=== PATIENT | female | born 1945 | race Two or more races ===

== ENCOUNTER 2019-06-11 20:07 | Inpatient (IN) | payer SELFPAY ==
[~2019-06-11] VITALS: Ht 152.4 cm; Wt 48.5 kg
[2019-06-11] MEDS ORDERED: IPRATROPIUM BROMIDE (0.02%) 0.5MG/2.5ML NEB HHN STA (20:18)
[2019-06-11] MEDS ORDERED: ALBUTEROL (0.083%) 2.5MG/3ML NEB HHN STA (20:18)
[2019-06-11] MEDS ORDERED: METHYLPREDNISOLONE SOD SUCC 125 MG/2 ML VIAL IV STA (20:18)
[2019-06-11] MEDS ORDERED: DILTIAZEM HCL 5MG/ML 5ML VIAL IV ONE ×2 (20:30→23:45)
[2019-06-11 20:44] LABS: HEMATOCRIT. 43.4 % (36.0-48.0); HEMOGLOBIN. 14.8 g/dL (12.0-16.0); MEAN CORPUSCULAR HEMOGLOBIN 29.8 pg (28.0-32.0); MEAN CORPUSCULAR VOLUME 87.6 fL (81.0-99.0); PLATELET 481 x1000/uL (130-400); RED BLOOD CELL COUNT 4.96 mill/uL (4.2-5.4)
[2019-06-11 20:45] LABS: CHLORIDE 102 mEq/L (98-107)
[2019-06-11 21:09] LABS: PLATELET ESTIMATE INCREASED
[2019-06-11] MEDS ORDERED: LEVOFLOXACIN 750MG PREMIX 150 ML IV ONE (21:30)
[2019-06-11] MEDS ORDERED: SODIUM CHLORIDE 0.9% 1000ML BAG (SEPSIS BOLUS) IV ONE (21:30)
[2019-06-11] MEDS ORDERED: ACETAMINOPHEN 325MG TABLET PO PRN (22:30)
[2019-06-11] MEDS ORDERED: LORAZEPAM 0.5MG TABLET PO PRN (22:30)
[2019-06-11] MEDS ORDERED: NA PHOS,M-B/NA PHOS,DI-BA ENEMA 118ML PR PRN (22:30)
[2019-06-11] MEDS ORDERED: DOCUSATE SODIUM 100MG CAPSULE PO PRN (22:30)
[2019-06-11] MEDS ORDERED: CLONIDINE 0.1MG TABLET PO PRN (22:30)
[2019-06-11] MEDS ORDERED: ZOLPIDEM TARTRATE 5MG TABLET PO PRN (22:30)
[2019-06-11] MEDS ORDERED: NITROGLYCERIN 0.4MG TABLET SL SL PRN (22:30)
[2019-06-11] MEDS ORDERED: MAGNESIUM/ALUMINUM HYDROXIDE/SIMETHICONE 30ML UDC PO PRN (22:30)
[2019-06-11] MEDS ORDERED: DIPHENHYDRAMINE 50MG/ML VIAL IV PRN (22:30)
[2019-06-11] MEDS ORDERED: IPRATROPIUM/ALBUTEROL 0.5-3(2.5)MG/3ML NEB NEB PRN (22:30)
[2019-06-11] MEDS ORDERED: ONDANSETRON HCL 4MG/2ML INJ IV PRN (22:30)
[2019-06-11] MEDS ORDERED: KETOROLAC 15MG/ML VIAL IV PRN (22:41)
[2019-06-11 22:46] LABS: BG BASE EXCESS -1.4 mmol/L (-2.0-2.0); BG BILEVEL POS AIRWAY PRESSURE 15/5; BG CARBOXYHEMOGLOBIN 0.3 % (0.5-1.5); BG DEOXYHEMOGLOBIN 0.3 % (0.0-5.0); BG FRACTION INSPIRED OXYGEN 100; BG HCO3 ACT 24.3 mmol/L (22.0-26.0); BG METHEMOGLOBIN 0.3 % (0.0-1.5); BG OXYGEN SATURATION 99.7 % (92.0-98.5); BG OXYHEMOGLOBIN 99.1 % (94.0-97.0); BG PCO2 44.6 mmHg (35.0-45.0); BG PH 7.355 (7.350-7.450); BG PO2 416.7 mmHg (75.0-100.0); BG SAMPLE SITE RIGHT RADIAL; BG TOTAL HEMOGLOBIN 14.7 g/dL (12.0-18.0); BG VENT MODE MASK - BIPAP; BG VENT RATE 14 set
[2019-06-11] MEDS ORDERED: DILTIAZEM HCL 125 MG in DEXT 5% WATER 100 ML IV ONE (23:45)
[2019-06-12] VITALS (9 sets, daily range): BP systolic 91–144; BP diastolic 52–85
[2019-06-12] LABS: CLARITY URINE CLOUDY (CLEAR); COLOR URINE ORANGE (YELLOW); KETONES URINE NEGATIVE (NEGATIVE); LEUKOCYTE ESTERASE URINE 2+ (NEGATIVE); NITRITE URINE POSITIVE (NEGATIVE); OCCULT BLOOD URINE TRACE (NEGATIVE); PROTEIN URINE 2+ (NEGATIVE); SPECIFIC GRAVITY URINE 1.026 (1.005-1.030); UROBILINOGEN URINE 0.2 E.U./dL (0.2-1.0)
[2019-06-12] MEDS ORDERED: DILTIAZEM HCL 125 MG in DEXT 5% WATER 100 ML IV ONE (02:20)
[2019-06-12] MEDS: IPRATROPIUM/ALBUTEROL 0.5-3(2.5)MG/3ML NEB HHN SCH ×7 (02:35→23:59)
[2019-06-12] MEDS: DILTIAZEM HCL 60MG TABLET PO SCH ×3 (06:00→18:00)
[2019-06-12] MEDS: METHYLPREDNISOLONE SOD SUCC 125 MG/2 ML VIAL IV SCH ×3 (06:14→21:32)
[2019-06-12] MEDS: FAMOTIDINE 20MG TABLET PO SCH (09:34)
[2019-06-12] MEDS: ASPIRIN 81MG EC TABLET PO SCH (09:34)
[2019-06-12] MEDS: ENOXAPARIN 40MG/0.4ML SYR SUBCUT SCH (09:35)
[2019-06-12] MEDS: GUAIFENESIN/DM 600MG/30MG ER TAB 12HR PO SCH ×2 (09:35→21:32)
[2019-06-12 09:44] LABS: CREATINE KINASE MB FRACTION 8.9 ng/mL (0.5-3.6)
[2019-06-12] MEDS ORDERED: PRED5TAB48 PO (11:50)
[2019-06-12] MEDS ORDERED: DIGO0.12 PO (11:50)
[2019-06-12] MEDS ORDERED: ATOR40TA70 PO (11:50)
[2019-06-12] MEDS ORDERED: XAR15 GT (11:50)
[2019-06-12] MEDS ORDERED: FLUO1POW12 MC (11:50)
[2019-06-12] MEDS ORDERED: DILT240C91 PO (11:50)
[2019-06-12] MEDS ORDERED: FLUO20TA29 MT (11:55)
[2019-06-12 17:08] LABS: CREATINE KINASE MB FRACTION 8.3 ng/mL (0.5-3.6)
[2019-06-12] MEDS ORDERED: DEXTROSE 50% WATER 50ML SYRINGE IV PRN (19:30)
[2019-06-12] MEDS: BLOOD SUGAR DIAGNOSTIC STRIP TEST SCH (21:21)
[2019-06-12] MEDS: INSULIN LISPRO 100 UNITS/ML SUBCUT SCH (21:31)
[2019-06-12] MEDS ORDERED: LEVOFLOXACIN 250MG PREMIX 50 ML IV SCH (22:00)
[2019-06-12] MEDS: LEVOFLOXACIN 250MG PREMIX 50 ML IV SCH (23:58)
[2019-06-13] VITALS (13 sets, daily range): BP systolic 95–142; BP diastolic 50–94
[2019-06-13] MEDS: IPRATROPIUM/ALBUTEROL 0.5-3(2.5)MG/3ML NEB HHN SCH (04:13)
[2019-06-13] MEDS: DILTIAZEM HCL 60MG TABLET PO SCH ×2 (05:02)
[2019-06-13] MEDS: DILTIAZEM HCL 30MG TABLET PO SCH ×4 (05:14→23:24)
[2019-06-13] MEDS: METHYLPREDNISOLONE SOD SUCC 125 MG/2 ML VIAL IV SCH ×3 (05:56→21:00)
[2019-06-13] MEDS: BLOOD SUGAR DIAGNOSTIC STRIP TEST SCH ×4 (06:01→20:38)
[2019-06-13] MEDS: INSULIN LISPRO 100 UNITS/ML SUBCUT SCH ×4 (07:20→20:44)
[2019-06-13] MEDS ORDERED: DIGOXIN 500MCG/2ML AMP IV NR ×2 (07:45→12:00)
[2019-06-13] MEDS: ASPIRIN 81MG EC TABLET PO SCH (08:02)
[2019-06-13] MEDS: FAMOTIDINE 20MG TABLET PO SCH (08:02)
[2019-06-13] MEDS: GUAIFENESIN/DM 600MG/30MG ER TAB 12HR PO SCH ×2 (08:02→20:44)
[2019-06-13] MEDS: ENOXAPARIN 40MG/0.4ML SYR SUBCUT SCH (08:02)
[2019-06-13] MEDS ORDERED: DIGOXIN 500MCG/2ML AMP IV ONE (09:30)
[2019-06-13] MEDS: GUAIFENESIN 200MG/10ML SUGAR FREE UDC PO PRN (14:24)
[2019-06-13] MEDS: IPRATROPIUM BROMIDE (0.02%) 0.5MG/2.5ML NEB HHN SCH ×2 (16:30→20:17)
[2019-06-13] MEDS: LEVOFLOXACIN 250MG PREMIX 50 ML IV SCH (23:24)
[2019-06-14] VITALS (16 sets, daily range): BP systolic 98–142; BP diastolic 49–70
[2019-06-14] MEDS: IPRATROPIUM BROMIDE (0.02%) 0.5MG/2.5ML NEB HHN SCH ×5 (04:04→21:35)
[2019-06-14] MEDS: METHYLPREDNISOLONE SOD SUCC 125 MG/2 ML VIAL IV SCH ×3 (05:59→20:30)
[2019-06-14] MEDS: DILTIAZEM HCL 30MG TABLET PO SCH (05:59)
[2019-06-14] MEDS: BLOOD SUGAR DIAGNOSTIC STRIP TEST SCH ×4 (06:03→20:31)
[2019-06-14] MEDS: GUAIFENESIN 200MG/10ML SUGAR FREE UDC PO PRN (06:06)
[2019-06-14 06:46] LABS: BASOPHILS % 0.1 % (0.0-2.0); EOSINOPHILS % 0.1 % (0.0-5.0); HEMATOCRIT. 36.1 % (36.0-48.0); HEMOGLOBIN. 12.4 g/dL (12.0-16.0); LYMPHOCYTES % 7.3 % (20.0-50.0); MEAN CORPUSCULAR HEMOGLOBIN 29.8 pg (28.0-32.0); MEAN CORPUSCULAR VOLUME 86.9 fL (81.0-99.0); MEAN PLATELET VOLUME 7.4 fl (7.4-10.4); MONOCYTES % 5.7 % (2.0-8.0); NEUTROPHILS % 86.8 % (40.0-76.0); PLATELET 362 x1000/uL (130-400); RED BLOOD CELL COUNT 4.15 mill/uL (4.2-5.4)
[2019-06-14 07:06] LABS: CHLORIDE 105 mEq/L (98-107)
[2019-06-14] MEDS: INSULIN LISPRO 100 UNITS/ML SUBCUT SCH ×4 (07:20→20:47)
[2019-06-14] MEDS: ASPIRIN 81MG EC TABLET PO SCH (08:57)
[2019-06-14] MEDS: FAMOTIDINE 20MG TABLET PO SCH (08:57)
[2019-06-14] MEDS: GUAIFENESIN/DM 600MG/30MG ER TAB 12HR PO SCH ×2 (08:57→20:31)
[2019-06-14] MEDS: ENOXAPARIN 40MG/0.4ML SYR SUBCUT SCH (08:58)
[2019-06-14] MEDS: DILTIAZEM HCL 60MG TABLET PO SCH ×3 (09:14→20:31)
[2019-06-14] MEDS: DIGOXIN 125MCG TABLET PO SCH (17:10)
[2019-06-15] VITALS (12 sets, daily range): BP systolic 92–135; BP diastolic 46–77
[2019-06-15] MEDS: LEVOFLOXACIN 250MG PREMIX 50 ML IV SCH ×2 (00:13→23:57)
[2019-06-15] MEDS: IPRATROPIUM BROMIDE (0.02%) 0.5MG/2.5ML NEB HHN SCH ×5 (01:52→21:50)
[2019-06-15] MEDS: METHYLPREDNISOLONE SOD SUCC 125 MG/2 ML VIAL IV SCH ×3 (06:16→21:31)
[2019-06-15] MEDS: DILTIAZEM HCL 60MG TABLET PO SCH ×3 (06:17→21:32)
[2019-06-15] MEDS: BLOOD SUGAR DIAGNOSTIC STRIP TEST SCH ×4 (06:19→21:32)
[2019-06-15 07:08] LABS: CHLORIDE 102 mEq/L (98-107)
[2019-06-15 07:12] LABS: BASOPHILS % 0.6 % (0.0-2.0); EOSINOPHILS % 0.1 % (0.0-5.0); HEMATOCRIT. 39.5 % (36.0-48.0); HEMOGLOBIN. 13.9 g/dL (12.0-16.0); LYMPHOCYTES % 8.4 % (20.0-50.0); MEAN CORPUSCULAR HEMOGLOBIN 30.4 pg (28.0-32.0); MEAN CORPUSCULAR VOLUME 86.6 fL (81.0-99.0); MEAN PLATELET VOLUME 7.6 fl (7.4-10.4); MONOCYTES % 6.4 % (2.0-8.0); NEUTROPHILS % 84.5 % (40.0-76.0); PLATELET 377 x1000/uL (130-400); RED BLOOD CELL COUNT 4.56 mill/uL (4.2-5.4); RED CELL DISTRIBUTION WIDTH 14.1 % (11.6-14.6)
[2019-06-15] MEDS: INSULIN LISPRO 100 UNITS/ML SUBCUT SCH ×4 (07:20→21:47)
[2019-06-15] MEDS: GUAIFENESIN/DM 600MG/30MG ER TAB 12HR PO SCH ×2 (09:09→21:31)
[2019-06-15] MEDS: ENOXAPARIN 40MG/0.4ML SYR SUBCUT SCH (09:09)
[2019-06-15] MEDS: ASPIRIN 81MG EC TABLET PO SCH (09:09)
[2019-06-15] MEDS: FAMOTIDINE 20MG TABLET PO SCH (09:09)
[2019-06-15] MEDS: DIGOXIN 125MCG TABLET PO SCH (17:05)
[2019-06-16] VITALS (9 sets, daily range): BP systolic 99–129; BP diastolic 41–84
[2019-06-16] MEDS: IPRATROPIUM BROMIDE (0.02%) 0.5MG/2.5ML NEB HHN SCH ×4 (01:44→12:25)
[2019-06-16] MEDS: METHYLPREDNISOLONE SOD SUCC 125 MG/2 ML VIAL IV SCH ×2 (06:04→13:27)
[2019-06-16] MEDS: BLOOD SUGAR DIAGNOSTIC STRIP TEST SCH ×2 (06:04→11:58)
[2019-06-16] MEDS: DILTIAZEM HCL 60MG TABLET PO SCH (06:05)
[2019-06-16] MEDS: INSULIN LISPRO 100 UNITS/ML SUBCUT SCH ×2 (06:05→13:28)
[2019-06-16 06:50] LABS: BASOPHILS % 0.5 % (0.0-2.0); EOSINOPHILS % 0.1 % (0.0-5.0); HEMATOCRIT. 39.5 % (36.0-48.0); HEMOGLOBIN. 13.6 g/dL (12.0-16.0); MEAN CORPUSCULAR VOLUME 86.9 fL (81.0-99.0); MEAN PLATELET VOLUME 7.7 fl (7.4-10.4); MONOCYTES % 3.8 % (2.0-8.0); NEUTROPHILS % 87.6 % (40.0-76.0); PLATELET 348 x1000/uL (130-400); RED BLOOD CELL COUNT 4.55 mill/uL (4.2-5.4)
[2019-06-16 07:19] LABS: CHLORIDE 102 mEq/L (98-107)
[2019-06-16] MEDS: GUAIFENESIN/DM 600MG/30MG ER TAB 12HR PO SCH (08:48)
[2019-06-16] MEDS: ASPIRIN 81MG EC TABLET PO SCH (08:48)
[2019-06-16] MEDS: FAMOTIDINE 20MG TABLET PO SCH (08:48)
[2019-06-16] MEDS: ENOXAPARIN 40MG/0.4ML SYR SUBCUT SCH (08:49)
[2019-06-16 10:43] LABS: BG BASE EXCESS 6.9 mmol/L (-2.0-2.0); BG CARBOXYHEMOGLOBIN 0.1 % (0.5-1.5); BG DEOXYHEMOGLOBIN 8.3 % (0.0-5.0); BG FRACTION INSPIRED OXYGEN 21; BG HCO3 ACT 31.4 mmol/L (22.0-26.0); BG METHEMOGLOBIN 0.3 % (0.0-1.5); BG OXYGEN SATURATION 91.7 % (92.0-98.5); BG OXYHEMOGLOBIN 91.3 % (94.0-97.0); BG PCO2 44.3 mmHg (35.0-45.0); BG PH 7.469 (7.350-7.450); BG PO2 58.2 mmHg (75.0-100.0); BG SAMPLE SITE LEFT BRACHIAL; BG TOTAL HEMOGLOBIN 13.9 g/dL (12.0-18.0); BG VENT MODE ROOM AIR
[2019-06-16] MEDS ORDERED: DILTIAZEM HCL 30MG TABLET PO SCH (12:00)
[2019-06-16] MEDS ORDERED: LEVOFLOXACIN 250MG TABLET PO SCH (23:00)
== END 2019-06-16 14:28 | disposition home or self-care (01) | DRG 720 ==
LOC: ER 20:07 → 3WST 22:24 → EDBD 22:24 → CANRESERV 22:36 → ENRESERV 22:36 → EDBEDREQSVC 22:51 → ENRESERV 06-12 02:20
PROVIDERS: ADMIT Internal Medicine; ATTEND Internal Medicine
DX: A41.9 Sepsis, unspecified organism (principal); J96.00 Acute respiratory failure, unspecified whether with hypoxia or hypercapnia; I50.43 Acute on chronic combined systolic (congestive) and diastolic (congestive) heart failure; E44.0 Moderate protein-calorie malnutrition; J90 Pleural effusion, not elsewhere classified; E11.65 Type 2 diabetes mellitus with hyperglycemia; I48.91 Unspecified atrial fibrillation; I47.1 Supraventricular tachycardia; I48.0 Paroxysmal atrial fibrillation; I48.92 Unspecified atrial flutter; J44.1 Chronic obstructive pulmonary disease with (acute) exacerbation; E05.90 Thyrotoxicosis, unspecified without thyrotoxic crisis or storm; N39.0 Urinary tract infection, site not specified; R79.89 Other specified abnormal findings of blood chemistry; E11.9 Type 2 diabetes mellitus without complications; J96.20 Acute and chronic respiratory failure, unspecified whether with hypoxia or hypercapnia; Z79.4 Long term (current) use of insulin; Z68.20 Body mass index [BMI] 20.0-20.9, adult; F17.210 Nicotine dependence, cigarettes, uncomplicated; Z79.01 Long term (current) use of anticoagulants; Z79.82 Long term (current) use of aspirin
CPT/HCPCS: 36415; 36600; 71045; 80048; 80061; 81003; 82375; 82550; 82553; 82805; 82962; 83036; 83605; 83735; 83880; 84145; 84443; 84484; 93005; 93306; 94640; 94644; 94660; 96365; 96366; 96375; 97116; 97162; 99291; J1160; J1650; J1815; J1956; J2930; J3490; J7060; J7611; J7620

== ENCOUNTER 2019-08-08 10:14 | Inpatient (IN) | payer SELFPAY ==
[~2019-08-08] VITALS: Ht 149.9 cm; Wt 54.9 kg
[~2019-08-08 10:14] MED LIST: ATOR40TA70 PO; DIGO0.12 PO; DILT240C91 PO; FLUO20TA29 MT; XAR15 GT
[2019-08-08] MEDS ORDERED: ASPIRIN 81MG TABLET PO ONE (10:30)
[2019-08-08] MEDS ORDERED: NITROGLYCERIN 0.4MG TABLET SL SL PRN (10:30)
[2019-08-08 11:10] LABS: BG BASE EXCESS -2.2 mmol/L (-2.0-2.0); BG BILEVEL POS AIRWAY PRESSURE 15/5; BG CARBOXYHEMOGLOBIN 0.8 % (0.5-1.5); BG DEOXYHEMOGLOBIN 0.2 % (0.0-5.0); BG FRACTION INSPIRED OXYGEN 100; BG HCO3 ACT 23.4 mmol/L (22.0-26.0); BG METHEMOGLOBIN 0.4 % (0.0-1.5); BG OXYGEN SATURATION 99.8 % (92.0-98.5); BG OXYHEMOGLOBIN 98.6 % (94.0-97.0); BG PCO2 43.1 mmHg (35.0-45.0); BG PH 7.352 (7.350-7.450); BG PO2 474.6 mmHg (75.0-100.0); BG SAMPLE SITE RIGHT RADIAL; BG VENT MODE MASK - BIPAP; BG VENT RATE 24 set
[2019-08-08 11:25] LABS: BASOPHILS % 0.4 % (0.0-2.0); EOSINOPHILS % 11.7 % (0.0-5.0); HEMATOCRIT. 41.8 % (36.0-48.0); HEMOGLOBIN. 14.1 g/dL (12.0-16.0); LYMPHOCYTES % 11.8 % (20.0-50.0); MEAN CORPUSCULAR HEMOGLOBIN 29.9 pg (28.0-32.0); MONOCYTES % 5.5 % (2.0-8.0); NEUTROPHILS % 70.6 % (40.0-76.0); PLATELET 373 x1000/uL (130-400); RED CELL DISTRIBUTION WIDTH 14.9 % (11.6-14.6)
[2019-08-08] MEDS ORDERED: SODIUM CHLORIDE 0.9% 1,000 ML IV ONE (11:30)
[2019-08-08 11:34] LABS: CHLORIDE 108 mEq/L (98-107)
[2019-08-08] MEDS ORDERED: DILTIAZEM HCL 5MG/ML 5ML VIAL IV ONE (12:00)
[2019-08-08] MEDS ORDERED: DILTIAZEM HCL 180MG CAPSULE CD 24HR PO ONE (12:45)
[2019-08-08] MEDS ORDERED: ENOXAPARIN 80MG/0.8ML SYR SUBCUT ONE (12:45)
[2019-08-08] MEDS ORDERED: METHYLPREDNISOLONE SOD SUCC 125 MG/2 ML VIAL IV ONE (12:45)
[2019-08-08] MEDS ORDERED: ACETAMINOPHEN 325MG TABLET PO PRN (13:00)
[2019-08-08] MEDS ORDERED: DEXTROSE 50% WATER 50ML SYRINGE IV PRN (13:00)
[2019-08-08] MEDS ORDERED: ONDANSETRON HCL 4MG/2ML INJ IV PRN (13:00)
[2019-08-08 15:42] LABS: HEPATITIS B SURFACE ANTIGEN NEGATIVE
[2019-08-08 16:00] VITALS: BP_SYST 114; BP_SYST 117; BP_DIAS 64; BP_DIAS 72
[2019-08-08 16:11] LABS: HEPATITIS A AB IGM NEGATIVE (NEGATIVE)
[2019-08-08] MEDS ORDERED: RIVAROXABAN 10 MG TABLET PO SCH (17:00)
[2019-08-08] MEDS ORDERED: IPRATROPIUM BROMIDE (0.02%) 0.5MG/2.5ML NEB ONE (17:32)
[2019-08-08] MEDS: IPRATROPIUM BROMIDE (0.02%) 0.5MG/2.5ML NEB HHN SCH ×2 (17:33→20:42)
[2019-08-08] MEDS: BLOOD SUGAR DIAGNOSTIC STRIP TEST SCH ×2 (17:34→21:00)
[2019-08-08] MEDS: BUDESONIDE 0.5MG/2ML NEB HHN SCH (17:34)
[2019-08-08 18:00] VITALS: BP 105/62
[2019-08-08] MEDS ORDERED: DIGOXIN 500MCG/2ML AMP IV SCH (18:00)
[2019-08-08] MEDS: INSULIN LISPRO 100 UNITS/ML SUBCUT SCH ×2 (18:00→21:46)
[2019-08-08] MEDS ORDERED: LEVOFLOXACIN 500MG PREMIX 100 ML IV SCH (18:00)
[2019-08-08 20:00] VITALS: BP 103/63
[2019-08-08] MEDS: ATORVASTATIN CALCIUM 40MG TABLET PO SCH (21:30)
[2019-08-08] MEDS: BENZONATATE 100MG CAPSULE PO PRN (21:30)
[2019-08-08] MEDS: METHYLPREDNISOLONE SOD SUCC 125 MG/2 ML VIAL IV SCH (21:31)
[2019-08-08] MEDS: DILTIAZEM HCL 60MG TABLET PO SCH (21:31)
[2019-08-08] MEDS: FAMOTIDINE 20MG TABLET PO SCH (21:31)
[2019-08-08] MEDS: LORATADINE 10MG TABLET PO SCH (21:44)
[2019-08-08 22:00] VITALS: BP 118/49
[2019-08-08] MEDS ORDERED: METHYLPREDNISOLONE SOD SUCC 40 MG/ML VIAL IV SCH (22:00)
[2019-08-09] VITALS (12 sets, daily range): BP systolic 83–121; BP diastolic 46–73
[2019-08-09] MEDS ORDERED: ENOXAPARIN 60MG/0.6ML SYR SUBCUT NR
[2019-08-09] MEDS: BUDESONIDE 0.5MG/2ML NEB HHN SCH ×2 (00:48→11:50)
[2019-08-09] MEDS: IPRATROPIUM BROMIDE (0.02%) 0.5MG/2.5ML NEB HHN SCH ×5 (00:51→20:22)
[2019-08-09] MEDS: METHYLPREDNISOLONE SOD SUCC 125 MG/2 ML VIAL IV SCH ×4 (05:45→23:23)
[2019-08-09] MEDS: BLOOD SUGAR DIAGNOSTIC STRIP TEST SCH ×4 (07:32→21:31)
[2019-08-09] MEDS: INSULIN LISPRO 100 UNITS/ML SUBCUT SCH ×4 (07:33→21:36)
[2019-08-09 08:18] LABS: HEMATOCRIT. 33.7 % (36.0-48.0); HEMOGLOBIN. 11.2 g/dL (12.0-16.0); MEAN CORPUSCULAR HEMOGLOBIN 29.9 pg (28.0-32.0); MEAN CORPUSCULAR VOLUME 89.6 fL (81.0-99.0); MEAN PLATELET VOLUME 9.1 fl (7.4-10.4); PLATELET 236 x1000/uL (130-400); RED BLOOD CELL COUNT 3.76 mill/uL (4.2-5.4); RED CELL DISTRIBUTION WIDTH 15.3 % (11.6-14.6)
[2019-08-09 08:33] LABS: CHLORIDE 111 mEq/L (98-107)
[2019-08-09 08:42] LABS: T4 FREE 1.32 ng/dL (0.76-1.46)
[2019-08-09] MEDS: DILTIAZEM HCL 60MG TABLET PO SCH ×2 (09:00→16:43)
[2019-08-09] MEDS: LORATADINE 10MG TABLET PO SCH (09:12)
[2019-08-09] MEDS: BENZONATATE 100MG CAPSULE PO PRN ×2 (09:12→18:32)
[2019-08-09] MEDS: ASPIRIN 81MG EC TABLET PO SCH (09:12)
[2019-08-09] MEDS: FAMOTIDINE 20MG TABLET PO SCH ×2 (09:12→21:27)
[2019-08-09 15:42] LABS: CLARITY URINE CLOUDY (CLEAR); COLOR URINE DARK YELLOW (YELLOW); KETONES URINE 1+ (NEGATIVE); LEUKOCYTE ESTERASE URINE TRACE (NEGATIVE); NITRITE URINE NEGATIVE (NEGATIVE); OCCULT BLOOD URINE NEGATIVE (NEGATIVE); PROTEIN URINE TRACE (NEGATIVE); SPECIFIC GRAVITY URINE 1.026 (1.005-1.030)
[2019-08-09 16:14] LABS: *AMPHETAMINES SCREEN URINE NEGATIVE (NEGATIVE); *BARBITURATES SCREEN URINE NEGATIVE (NEGATIVE)
[2019-08-09 16:15] LABS: *BENZODIAZEPINES SCREEN URINE NEGATIVE (NEGATIVE); *COCAINE SCREEN URINE NEGATIVE (NEGATIVE); CANNABINOID URINE SCREEN NEGATIVE (NEGATIVE); METHADONE URINE SCREEN NEGATIVE (NEGATIVE); OPIATES URINE SCREEN PRESUMTIVE POSITIVE (NEGATIVE); PHENCYCLIDINE URINE SCREEN NEGATIVE (NEGATIVE)
[2019-08-09] MEDS: DILTIAZEM HCL 5MG/ML 5ML VIAL IV PRN ×2 (17:22→19:48)
[2019-08-09] MEDS: MONTELUKAST SODIUM 10MG TABLET PO SCH (17:22)
[2019-08-09] MEDS: ENOXAPARIN 60MG/0.6ML SYR SUBCUT SCH (17:23)
[2019-08-09] MEDS: DIGOXIN 125MCG TABLET PO SCH (17:23)
[2019-08-09] MEDS: LEVOFLOXACIN 250MG PREMIX 50 ML IV SCH (17:38)
[2019-08-09] MEDS ORDERED: DIGOXIN 500MCG/2ML AMP IV PRN (18:30)
[2019-08-09 20:37] LABS: PROTHROMBIN TIME 10.4 sec (9.6-11.0)
[2019-08-09] MEDS: ATORVASTATIN CALCIUM 40MG TABLET PO SCH (21:27)
[2019-08-10] VITALS (20 sets, daily range): BP systolic 82–132; BP diastolic 42–73
[2019-08-10] MEDS: DILTIAZEM HCL 60MG TABLET PO SCH ×7 (00:22→23:38)
[2019-08-10] MEDS: IPRATROPIUM BROMIDE (0.02%) 0.5MG/2.5ML NEB HHN SCH ×6 (00:37→21:40)
[2019-08-10] MEDS ORDERED: DIGOXIN 500MCG/2ML AMP IV PRN (04:00)
[2019-08-10] MEDS: ENOXAPARIN 60MG/0.6ML SYR SUBCUT SCH ×2 (05:15→18:46)
[2019-08-10] MEDS: BENZONATATE 100MG CAPSULE PO PRN ×2 (05:15→09:09)
[2019-08-10] MEDS: METHYLPREDNISOLONE SOD SUCC 125 MG/2 ML VIAL IV SCH ×4 (05:15→23:38)
[2019-08-10] MEDS ORDERED: SODIUM CHLORIDE 0.9% 200 ML IV ONE (06:15)
[2019-08-10 07:11] LABS: HEMATOCRIT. 33.9 % (36.0-48.0); HEMOGLOBIN. 11.3 g/dL (12.0-16.0); MEAN CORPUSCULAR HEMOGLOBIN 30.1 pg (28.0-32.0); MEAN CORPUSCULAR VOLUME 90.1 fL (81.0-99.0); MEAN PLATELET VOLUME 9.2 fl (7.4-10.4); PLATELET 251 x1000/uL (130-400); RED BLOOD CELL COUNT 3.76 mill/uL (4.2-5.4); RED CELL DISTRIBUTION WIDTH 15.1 % (11.6-14.6)
[2019-08-10 07:19] LABS: CHLORIDE 111 mEq/L (98-107)
[2019-08-10] MEDS: BUDESONIDE 0.5MG/2ML NEB HHN SCH (08:05)
[2019-08-10] MEDS: BLOOD SUGAR DIAGNOSTIC STRIP TEST SCH ×4 (08:06→21:35)
[2019-08-10] MEDS: ASPIRIN 81MG EC TABLET PO SCH (08:49)
[2019-08-10] MEDS: INSULIN LISPRO 100 UNITS/ML SUBCUT SCH ×4 (08:49→21:41)
[2019-08-10] MEDS: FAMOTIDINE 20MG TABLET PO SCH ×2 (08:50→21:00)
[2019-08-10] MEDS: LORATADINE 10MG TABLET PO SCH (08:56)
[2019-08-10] MEDS ORDERED: DILTIAZEM HCL 5MG/ML 5ML VIAL IV SCH (09:00)
[2019-08-10 09:02] LABS: PLATELET ESTIMATE NORMAL
[2019-08-10 11:40] LABS: PLATELET ESTIMATE NORMAL
[2019-08-10] MEDS: MONTELUKAST SODIUM 10MG TABLET PO SCH (18:15)
[2019-08-10] MEDS: DIGOXIN 125MCG TABLET PO SCH (18:18)
[2019-08-10] MEDS: LEVOFLOXACIN 250MG PREMIX 50 ML IV SCH (18:19)
[2019-08-10] MEDS: ATORVASTATIN CALCIUM 40MG TABLET PO SCH (21:41)
[2019-08-11] VITALS (16 sets, daily range): BP systolic 84–122; BP diastolic 50–75
[2019-08-11] MEDS: IPRATROPIUM BROMIDE (0.02%) 0.5MG/2.5ML NEB HHN SCH ×6 (02:05→22:01)
[2019-08-11] MEDS: DILTIAZEM HCL 60MG TABLET PO SCH (06:56)
[2019-08-11] MEDS: ENOXAPARIN 60MG/0.6ML SYR SUBCUT SCH ×2 (06:56→17:45)
[2019-08-11] MEDS: METHYLPREDNISOLONE SOD SUCC 125 MG/2 ML VIAL IV SCH ×4 (06:56→23:27)
[2019-08-11] MEDS: BLOOD SUGAR DIAGNOSTIC STRIP TEST SCH ×4 (07:02→20:08)
[2019-08-11 07:13] LABS: HEMATOCRIT. 35.9 % (36.0-48.0); HEMOGLOBIN. 11.8 g/dL (12.0-16.0); MEAN CORPUSCULAR HEMOGLOBIN 29.4 pg (28.0-32.0); MEAN CORPUSCULAR VOLUME 89.6 fL (81.0-99.0); PLATELET 261 x1000/uL (130-400); RED BLOOD CELL COUNT 4.01 mill/uL (4.2-5.4); RED CELL DISTRIBUTION WIDTH 15.5 % (11.6-14.6)
[2019-08-11 07:38] LABS: CHLORIDE 109 mEq/L (98-107)
[2019-08-11] MEDS: BENZONATATE 100MG CAPSULE PO PRN ×2 (08:45→20:20)
[2019-08-11] MEDS: LORATADINE 10MG TABLET PO SCH (08:45)
[2019-08-11] MEDS: ASPIRIN 81MG EC TABLET PO SCH (08:46)
[2019-08-11] MEDS: INSULIN LISPRO 100 UNITS/ML SUBCUT SCH ×4 (08:47→20:20)
[2019-08-11] MEDS: BUDESONIDE 0.5MG/2ML NEB HHN SCH ×2 (09:11→22:02)
[2019-08-11] MEDS: FAMOTIDINE 40MG TABLET PO SCH ×2 (09:46→20:20)
[2019-08-11] MEDS ORDERED: SODIUM CHLORIDE 0.9% 250 ML IV ONE (11:30)
[2019-08-11] MEDS: DILTIAZEM HCL 30MG TABLET PO SCH ×4 (12:00→23:27)
[2019-08-11 12:08] LABS: BG BASE EXCESS 0.9 mmol/L (-2.0-2.0); BG CARBOXYHEMOGLOBIN 0.4 % (0.5-1.5); BG DEOXYHEMOGLOBIN 3.1 % (0.0-5.0); BG FRACTION INSPIRED OXYGEN 28; BG HCO3 ACT 25.7 mmol/L (22.0-26.0); BG METHEMOGLOBIN 0.4 % (0.0-1.5); BG OXYGEN SATURATION 96.9 % (92.0-98.5); BG OXYHEMOGLOBIN 96.1 % (94.0-97.0); BG PCO2 41.9 mmHg (35.0-45.0); BG PH 7.406 (7.350-7.450); BG PO2 92.5 mmHg (75.0-100.0); BG SAMPLE SITE RIGHT BRACHIAL; BG TOTAL HEMOGLOBIN 13.2 g/dL (12.0-18.0); BG VENT MODE NASAL CANNULA
[2019-08-11] MEDS: DILTIAZEM HCL 5MG/ML 5ML VIAL IV PRN (13:08)
[2019-08-11 14:15] LABS: PLATELET ESTIMATE NORMAL
[2019-08-11] MEDS: LEVOFLOXACIN 250MG PREMIX 50 ML IV SCH (17:37)
[2019-08-11] MEDS: MONTELUKAST SODIUM 10MG TABLET PO SCH (17:37)
[2019-08-11] MEDS: ATORVASTATIN CALCIUM 40MG TABLET PO SCH (20:20)
[2019-08-11] MEDS: INSULIN GLARGINE UD 100 UNITS/ML SYR SUBCUT SCH (23:28)
[2019-08-12] VITALS (10 sets, daily range): BP systolic 105–141; BP diastolic 50–85
[2019-08-12] MEDS: IPRATROPIUM BROMIDE (0.02%) 0.5MG/2.5ML NEB HHN SCH ×4 (01:19→12:50)
[2019-08-12] MEDS: DILTIAZEM HCL 30MG TABLET PO SCH ×2 (05:41→12:13)
[2019-08-12] MEDS: METHYLPREDNISOLONE SOD SUCC 125 MG/2 ML VIAL IV SCH ×2 (05:42→12:12)
[2019-08-12] MEDS: ENOXAPARIN 60MG/0.6ML SYR SUBCUT SCH (05:42)
[2019-08-12 07:02] LABS: HEMATOCRIT. 35.1 % (36.0-48.0); HEMOGLOBIN. 11.8 g/dL (12.0-16.0); MEAN CORPUSCULAR HEMOGLOBIN 29.8 pg (28.0-32.0); MEAN CORPUSCULAR VOLUME 88.4 fL (81.0-99.0); MEAN PLATELET VOLUME 9.1 fl (7.4-10.4); PLATELET 234 x1000/uL (130-400); RED BLOOD CELL COUNT 3.97 mill/uL (4.2-5.4); RED CELL DISTRIBUTION WIDTH 14.4 % (11.6-14.6)
[2019-08-12 07:14] LABS: CHLORIDE 109 mEq/L (98-107)
[2019-08-12] MEDS: BLOOD SUGAR DIAGNOSTIC STRIP TEST SCH ×2 (07:30→12:14)
[2019-08-12] MEDS: ASPIRIN 81MG EC TABLET PO SCH (09:07)
[2019-08-12] MEDS: BENZONATATE 100MG CAPSULE PO PRN (09:07)
[2019-08-12] MEDS: FAMOTIDINE 40MG TABLET PO SCH (09:08)
[2019-08-12] MEDS: LORATADINE 10MG TABLET PO SCH (09:08)
[2019-08-12] MEDS: INSULIN LISPRO 100 UNITS/ML SUBCUT SCH ×2 (09:09→12:14)
[2019-08-12] MEDS: INSULIN GLARGINE UD 100 UNITS/ML SYR SUBCUT SCH (09:58)
[2019-08-12] MEDS ORDERED: POTASSIUM CHLORIDE 20MEQ TABLET SR PO SCH (12:00)
[2019-08-12 13:59] LABS: PLATELET ESTIMATE NORMAL
[2019-08-12 14:27] LABS: HEPATITIS B SURFACE ANTIGEN NEGATIVE
== END 2019-08-12 16:30 | disposition home or self-care (01) | DRG 720 ==
LOC: ER 10:14 → 5EST 12:53 → EDBEDREQ 13:13 → EDBEDREQSVC 13:13 → ENRESERV 14:46
PROVIDERS: ADMIT Internal Medicine; ATTEND Internal Medicine
PROC: 5A09357 Assistance with Respiratory Ventilation, Less than 24 Consecutive Hours, Continuous Positive Airway Pressure (ICD-10-PCS; principal; 2019-08-08)
DX: A41.9 Sepsis, unspecified organism (principal); J96.00 Acute respiratory failure, unspecified whether with hypoxia or hypercapnia; D72.1 Eosinophilia; E87.8 Other disorders of electrolyte and fluid balance, not elsewhere classified; I31.3 Pericardial effusion (noninflammatory); I48.0 Paroxysmal atrial fibrillation; E11.9 Type 2 diabetes mellitus without complications; E78.5 Hyperlipidemia, unspecified; I10 Essential (primary) hypertension; J20.9 Acute bronchitis, unspecified; J44.0 Chronic obstructive pulmonary disease with (acute) lower respiratory infection; J44.1 Chronic obstructive pulmonary disease with (acute) exacerbation; Z79.01 Long term (current) use of anticoagulants; Z79.899 Other long term (current) drug therapy
CPT/HCPCS: 36415; 36600; 71045; 76700; 78580; 80048; 80053; 80162; 80305; 81003; 82375; 82805; 82962; 83036; 83735; 83880; 84439; 84443; 84484; 85025; 85379; 86705; 86709; 86803; 87340; 87804; 93005; 93306; 93970; 94640; 94660; 96374; 97116; 97162; 99291; A6261; J1160; J1650; J1815; J1956; J2930; J3490; J7030; J7626

== ENCOUNTER 2019-09-06 12:28 | Emergency (ER) | payer SELFPAY ==
[~2019-09-06] VITALS: Ht 142.2 cm; Wt 52.0 kg
[~2019-09-06 12:28] MED LIST changes: -DIGO0.12 PO
[2019-09-06 13:13] VITALS: BP 153/73
== END 2019-09-06 15:37 | disposition left against medical advice (07) ==
LOC: ER 12:28
DX: Z53.21 Procedure and treatment not carried out due to patient leaving prior to being seen by health care provider (principal)

== ENCOUNTER 2019-09-25 15:06 | Inpatient (IN) | payer SELFPAY ==
[~2019-09-25] VITALS: Ht 152.4 cm; Wt 44.5 kg
[2019-09-25] MEDS ORDERED: METHYLPREDNISOLONE SOD SUCC 125 MG/2 ML VIAL IV STA (15:22)
[2019-09-25] MEDS ORDERED: IPRATROPIUM BROMIDE (0.02%) 0.5MG/2.5ML NEB HHN STA (15:22)
[2019-09-25] MEDS ORDERED: ASPIRIN 81MG TABLET PO ONE (15:30)
[2019-09-25] MEDS ORDERED: MAGNESIUM 2 G PREMIX 50 ML IV ONE (15:30)
[2019-09-25] MEDS ORDERED: SODIUM CHLORIDE 0.9% 1000ML BAG (SEPSIS BOLUS) IV ONE (15:30)
[2019-09-25] MEDS ORDERED: LEVOFLOXACIN 750MG PREMIX 150 ML IV ONE (15:30)
[2019-09-25 15:41] LABS: HEMOGLOBIN. 15.4 g/dL (12.0-16.0); MEAN CORPUSCULAR HEMOGLOBIN 30.5 pg (28.0-32.0); MEAN CORPUSCULAR VOLUME 89.4 fL (81.0-99.0); MEAN PLATELET VOLUME 8.8 fl (7.4-10.4); PLATELET 441 x1000/uL (130-400); RED BLOOD CELL COUNT 5.04 mill/uL (4.2-5.4); RED CELL DISTRIBUTION WIDTH 14.2 % (11.6-14.6)
[2019-09-25 15:46] LABS: CHLORIDE 107 mEq/L (98-107)
[2019-09-25 15:48] LABS: PARTIAL THROMBOPLASTIN TIME 29.5 sec (23.4-31.0); PROTHROMBIN TIME 10.7 sec (9.6-11.0)
[2019-09-25 15:57] LABS: BG BASE EXCESS -3.7 mmol/L (-2.0-2.0); BG BILEVEL POS AIRWAY PRESSURE 15/5; BG CARBOXYHEMOGLOBIN 0.6 % (0.5-1.5); BG DEOXYHEMOGLOBIN 0.6 % (0.0-5.0); BG HCO3 ACT 23.6 mmol/L (22.0-26.0); BG METHEMOGLOBIN 0.1 % (0.0-1.5); BG OXYGEN SATURATION 99.4 % (92.0-98.5); BG OXYHEMOGLOBIN 98.7 % (94.0-97.0); BG PCO2 51.7 mmHg (35.0-45.0); BG PH 7.277 (7.350-7.450); BG PO2 236.8 mmHg (75.0-100.0); BG SAMPLE SITE RIGHT RADIAL; BG TOTAL HEMOGLOBIN 14.2 g/dL (12.0-18.0); BG VENT MODE MASK - BIPAP; BG VENT RATE 18 set
[2019-09-25 16:00] LABS: PLATELET ESTIMATE INCREASED
[2019-09-25] MEDS ORDERED: NITROGLYCERIN OINT 1GM/INCH UDPKT TD ONE (16:00)
[2019-09-25 16:51] LABS: CLARITY URINE CLEAR (CLEAR); COLOR URINE DARK YELLOW (YELLOW); KETONES URINE NEGATIVE (NEGATIVE); LEUKOCYTE ESTERASE URINE 1+ (NEGATIVE); NITRITE URINE NEGATIVE (NEGATIVE); OCCULT BLOOD URINE NEGATIVE (NEGATIVE); PH URINE 6.5 (4.5-8.0); PROTEIN URINE 2+ (NEGATIVE); SPECIFIC GRAVITY URINE 1.016 (1.005-1.030); UROBILINOGEN URINE 0.2 E.U./dL (0.2-1.0)
[2019-09-26] VITALS (11 sets, daily range): BP systolic 89–151; BP diastolic 47–77
[2019-09-26] MEDS ORDERED: DIPHENHYDRAMINE 50MG/ML VIAL IV PRN
[2019-09-26] MEDS ORDERED: CLONIDINE 0.1MG TABLET PO PRN
[2019-09-26] MEDS ORDERED: NA PHOS,M-B/NA PHOS,DI-BA ENEMA 118ML PR PRN
[2019-09-26] MEDS ORDERED: DOCUSATE SODIUM 100MG CAPSULE PO PRN
[2019-09-26] MEDS ORDERED: ACETAMINOPHEN 650MG/20.3ML UDC GT PRN
[2019-09-26] MEDS ORDERED: ACETAMINOPHEN 325MG TABLET PO PRN
[2019-09-26] MEDS ORDERED: ACETAMINOPHEN 650MG SUPP PR PRN
[2019-09-26] MEDS ORDERED: ONDANSETRON HCL 4MG/2ML INJ IV PRN
[2019-09-26] MEDS ORDERED: DEXTROSE 50% WATER 50ML SYRINGE IV PRN
[2019-09-26] MEDS ORDERED: MAGNESIUM/ALUMINUM HYDROXIDE/SIMETHICONE 30ML UDC PO PRN
[2019-09-26] MEDS ORDERED: IPRATROPIUM/ALBUTEROL 0.5-3(2.5)MG/3ML NEB NEB PRN
[2019-09-26] MEDS ORDERED: CEFTRIAXONE 1 G PREMIX 50 ML IV SCH (01:00)
[2019-09-26] MEDS ORDERED: IPRATROPIUM/ALBUTEROL 0.5-3(2.5)MG/3ML NEB HHN SCH (02:00)
[2019-09-26] MEDS ORDERED: MORPHINE SULFATE 2 MG/ML CPJ (NOT FOR IM USE) IV PRN (04:45)
[2019-09-26] MEDS: GUAIFENESIN 200MG/10ML SUGAR FREE UDC PO PRN ×3 (05:08→22:16)
[2019-09-26] MEDS: METOPROLOL TARTRATE 5MG/5ML VIAL IV PRN ×3 (05:16→15:16)
[2019-09-26] MEDS ORDERED: ALBUTEROL (0.083%) 2.5MG/3ML NEB HHN SCH (06:00)
[2019-09-26] MEDS: SODIUM CHLORIDE 0.9% INJ 3ML FLUSH IVF SCH ×3 (06:17→22:13)
[2019-09-26] MEDS: BLOOD SUGAR DIAGNOSTIC STRIP TEST SCH ×4 (06:28→21:00)
[2019-09-26] MEDS: INSULIN LISPRO 100 UNITS/ML SUBCUT SCH ×4 (06:28→22:17)
[2019-09-26 07:18] LABS: CHLORIDE 111 mEq/L (98-107)
[2019-09-26 07:21] LABS: BASOPHILS % 0.2 % (0.0-2.0); EOSINOPHILS % 0.3 % (0.0-5.0); HEMOGLOBIN. 11.7 g/dL (12.0-16.0); LYMPHOCYTES % 12.3 % (20.0-50.0); MEAN CORPUSCULAR VOLUME 89.3 fL (81.0-99.0); MEAN PLATELET VOLUME 8.5 fl (7.4-10.4); MONOCYTES % 11.6 % (2.0-8.0); NEUTROPHILS % 75.6 % (40.0-76.0); PLATELET 336 x1000/uL (130-400); RED BLOOD CELL COUNT 3.92 mill/uL (4.2-5.4); RED CELL DISTRIBUTION WIDTH 14.1 % (11.6-14.6)
[2019-09-26 07:33] LABS: LDL CHOLESTEROL 72 mg/dL (5-100)
[2019-09-26 07:35] LABS: HDL CHOLESTEROL 76 mg/dL (40-59)
[2019-09-26] MEDS ORDERED: FUROSEMIDE 40MG/4ML VIAL IVP SCH (09:00)
[2019-09-26] MEDS: ENOXAPARIN 40MG/0.4ML SYR SUBCUT SCH (09:00)
[2019-09-26] MEDS ORDERED: DILTIAZEM HCL 120MG CAPSULE CD 24HR PO SCH (11:30)
[2019-09-26] MEDS ORDERED: DIGOXIN 500MCG/2ML AMP IV NR (11:30)
[2019-09-26] MEDS ORDERED: PNEUMOCOCCAL 23-VAL P-SAC VAC 0.5 ML IM ONE (12:00)
[2019-09-26] MEDS ORDERED: INFLUENZA VIRUS VACCINE(AFLURIA) 0.5ML SYR IM ONE (12:00)
[2019-09-26 12:20] LABS: BG BASE EXCESS 0.8 mmol/L (-2.0-2.0); BG BILEVEL POS AIRWAY PRESSURE 15/5 (18); BG CARBOXYHEMOGLOBIN 0.2 % (0.5-1.5); BG FRACTION INSPIRED OXYGEN 40; BG HCO3 ACT 25.8 mmol/L (22.0-26.0); BG METHEMOGLOBIN 0.4 % (0.0-1.5); BG OXYHEMOGLOBIN 97.4 % (94.0-97.0); BG PCO2 42.5 mmHg (35.0-45.0); BG PH 7.401 (7.350-7.450); BG PO2 107.4 mmHg (75.0-100.0); BG SAMPLE SITE RIGHT RADIAL; BG TOTAL HEMOGLOBIN 13.1 g/dL (12.0-18.0); BG VENT MODE MASK - BIPAP
[2019-09-26] MEDS ORDERED: DILTIAZEM HCL 5MG/ML 5ML VIAL IV PRN (15:00)
[2019-09-26] MEDS: IPRATROPIUM BROMIDE (0.02%) 0.5MG/2.5ML NEB HHN SCH ×2 (16:39→20:40)
[2019-09-26] MEDS: BUDESONIDE 0.5MG/2ML NEB HHN SCH ×2 (16:39→20:39)
[2019-09-26] MEDS: DILTIAZEM HCL 60MG TABLET PO SCH (17:24)
[2019-09-26] MEDS ORDERED: DIGOXIN 500MCG/2ML AMP IV SCH (18:00)
[2019-09-26] MEDS: FAMOTIDINE 20MG/2ML VIAL IV SCH (19:55)
[2019-09-26] MEDS: METHYLPREDNISOLONE SOD SUCC 40 MG/ML VIAL IV SCH (19:55)
[2019-09-26] MEDS: AMIODARONE HCL 200 MG TABLET PO SCH (21:29)
[2019-09-26] MEDS: MONTELUKAST SODIUM 10MG TABLET PO SCH (21:43)
[2019-09-27] VITALS (8 sets, daily range): BP systolic 94–121; BP diastolic 49–85
[2019-09-27] MEDS: DILTIAZEM HCL 60MG TABLET PO SCH ×4 (00:05→17:22)
[2019-09-27] MEDS: CEFTRIAXONE 1 G PREMIX 50 ML IV SCH (00:05)
[2019-09-27] MEDS: IPRATROPIUM BROMIDE (0.02%) 0.5MG/2.5ML NEB HHN SCH ×5 (00:27→20:34)
[2019-09-27] MEDS: SODIUM CHLORIDE 0.9% INJ 3ML FLUSH IVF SCH ×2 (05:30→21:23)
[2019-09-27] MEDS: INSULIN LISPRO 100 UNITS/ML SUBCUT SCH ×4 (07:54→20:29)
[2019-09-27] MEDS: BLOOD SUGAR DIAGNOSTIC STRIP TEST SCH ×4 (07:54→20:14)
[2019-09-27] MEDS: AMIODARONE HCL 200 MG TABLET PO SCH ×2 (08:48→20:13)
[2019-09-27] MEDS: LORATADINE 10MG TABLET PO SCH (08:49)
[2019-09-27] MEDS: FAMOTIDINE 20MG/2ML VIAL IV SCH (08:49)
[2019-09-27] MEDS: ENOXAPARIN 40MG/0.4ML SYR SUBCUT SCH ×2 (08:49→20:13)
[2019-09-27] MEDS: METHYLPREDNISOLONE SOD SUCC 40 MG/ML VIAL IV SCH ×2 (08:49→17:23)
[2019-09-27] MEDS: BUDESONIDE 0.5MG/2ML NEB HHN SCH ×2 (09:46→20:34)
[2019-09-27] MEDS: MONTELUKAST SODIUM 10MG TABLET PO SCH (17:30)
[2019-09-27] MEDS: GUAIFENESIN 200MG/10ML SUGAR FREE UDC PO PRN (20:13)
[2019-09-27] MEDS: GUAIFENESIN 600MG ER TABLET PO SCH (21:20)
[2019-09-27 22:59] LABS: HEMATOCRIT. 34.5 % (36.0-48.0); HEMOGLOBIN. 11.9 g/dL (12.0-16.0); MEAN CORPUSCULAR HEMOGLOBIN 30.2 pg (28.0-32.0); MEAN CORPUSCULAR VOLUME 87.4 fL (81.0-99.0); MEAN PLATELET VOLUME 8.3 fl (7.4-10.4); PLATELET 310 x1000/uL (130-400); RED BLOOD CELL COUNT 3.95 mill/uL (4.2-5.4); RED CELL DISTRIBUTION WIDTH 14.4 % (11.6-14.6)
[2019-09-27 23:09] LABS: CHLORIDE 107 mEq/L (98-107)
[2019-09-28] VITALS (12 sets, daily range): BP systolic 99–139; BP diastolic 47–71
[2019-09-28] MEDS: DILTIAZEM HCL 60MG TABLET PO SCH ×4 (00:17→17:07)
[2019-09-28] MEDS: CEFTRIAXONE 1 G PREMIX 50 ML IV SCH (00:17)
[2019-09-28 02:10] LABS: PLATELET ESTIMATE NORMAL
[2019-09-28] MEDS: IPRATROPIUM BROMIDE (0.02%) 0.5MG/2.5ML NEB HHN SCH ×4 (03:28→20:41)
[2019-09-28] MEDS: GUAIFENESIN 600MG ER TABLET PO SCH ×3 (05:42→21:17)
[2019-09-28] MEDS: SODIUM CHLORIDE 0.9% INJ 3ML FLUSH IVF SCH ×3 (05:49→21:17)
[2019-09-28] MEDS: BLOOD SUGAR DIAGNOSTIC STRIP TEST SCH ×4 (06:31→21:00)
[2019-09-28] MEDS: INSULIN LISPRO 100 UNITS/ML SUBCUT SCH ×4 (08:00→21:17)
[2019-09-28] MEDS: LORATADINE 10MG TABLET PO SCH (09:07)
[2019-09-28] MEDS: FAMOTIDINE 20MG/2ML VIAL IV SCH (09:07)
[2019-09-28] MEDS: GUAIFENESIN 200MG/10ML SUGAR FREE UDC PO PRN ×3 (09:07→21:00)
[2019-09-28] MEDS: METHYLPREDNISOLONE SOD SUCC 40 MG/ML VIAL IV SCH ×2 (09:08→17:07)
[2019-09-28] MEDS: ENOXAPARIN 40MG/0.4ML SYR SUBCUT SCH ×2 (09:09→21:00)
[2019-09-28] MEDS: AMIODARONE HCL 200 MG TABLET PO SCH ×2 (09:11→21:00)
[2019-09-28] MEDS: MONTELUKAST SODIUM 10MG TABLET PO SCH (17:08)
[2019-09-28] MEDS: BUDESONIDE 0.5MG/2ML NEB HHN SCH (20:40)
[2019-09-29] VITALS (12 sets, daily range): BP systolic 97–131; BP diastolic 47–71
[2019-09-29] MEDS: IPRATROPIUM BROMIDE (0.02%) 0.5MG/2.5ML NEB HHN SCH ×3 (01:06→14:37)
[2019-09-29] MEDS: CEFTRIAXONE 1 G PREMIX 50 ML IV SCH (02:39)
[2019-09-29] MEDS: DILTIAZEM HCL 60MG TABLET PO SCH ×2 (05:46)
[2019-09-29] MEDS: SODIUM CHLORIDE 0.9% INJ 3ML FLUSH IVF SCH ×2 (05:46→13:34)
[2019-09-29] MEDS: GUAIFENESIN 600MG ER TABLET PO SCH ×2 (06:14→13:25)
[2019-09-29] MEDS: GUAIFENESIN 200MG/10ML SUGAR FREE UDC PO PRN (06:21)
[2019-09-29] MEDS: BLOOD SUGAR DIAGNOSTIC STRIP TEST SCH ×2 (07:30→12:43)
[2019-09-29] MEDS: INSULIN LISPRO 100 UNITS/ML SUBCUT SCH ×2 (08:00→13:42)
[2019-09-29] MEDS ORDERED: AMI2 PO (08:30)
[2019-09-29] MEDS ORDERED: AZIT500T3 MT (08:30)
[2019-09-29] MEDS: BUDESONIDE 0.5MG/2ML NEB HHN SCH (08:37)
[2019-09-29] MEDS ORDERED: AZITHROMYCIN 500 MG TABLET PO SCH (09:00)
[2019-09-29] MEDS: LORATADINE 10MG TABLET PO SCH (10:11)
[2019-09-29] MEDS: AMIODARONE HCL 200 MG TABLET PO SCH (10:11)
[2019-09-29] MEDS: FAMOTIDINE 20MG/2ML VIAL IV SCH (10:11)
[2019-09-29] MEDS: METHYLPREDNISOLONE SOD SUCC 40 MG/ML VIAL IV SCH ×2 (10:11→16:42)
[2019-09-29] MEDS: ENOXAPARIN 40MG/0.4ML SYR SUBCUT SCH (10:12)
[2019-09-29] MEDS ORDERED: MONT10TA21 MT (10:56)
[2019-09-29] MEDS ORDERED: ALBU6.7H9 INH (10:56)
[2019-09-29] MEDS ORDERED: DILTIAZEM HCL 120MG CAPSULE CD 24HR PO SCH (11:30)
[2019-09-29] MEDS: MONTELUKAST SODIUM 10MG TABLET PO SCH (16:42)
== END 2019-09-29 18:45 | disposition home or self-care (01) | DRG 133 ==
LOC: ER 15:06 → 5EST 17:22 → EDBEDREQTM 17:34 → EDBEDREQ 17:34 → ENRESERV 23:48 → 5EST 09-26 01:43
PROVIDERS: ADMIT Family Medicine; ATTEND Family Medicine
PROC: 5A09357 Assistance with Respiratory Ventilation, Less than 24 Consecutive Hours, Continuous Positive Airway Pressure (ICD-10-PCS; principal; 2019-09-25)
PROC: 5A09357 Assistance with Respiratory Ventilation, Less than 24 Consecutive Hours, Continuous Positive Airway Pressure (ICD-10-PCS; 2019-09-26)
PROC: 5A09357 Assistance with Respiratory Ventilation, Less than 24 Consecutive Hours, Continuous Positive Airway Pressure (ICD-10-PCS; 2019-09-27)
PROC: 5A09357 Assistance with Respiratory Ventilation, Less than 24 Consecutive Hours, Continuous Positive Airway Pressure (ICD-10-PCS; 2019-09-28)
DX: J96.00 Acute respiratory failure, unspecified whether with hypoxia or hypercapnia (principal); J18.9 Pneumonia, unspecified organism; I42.9 Cardiomyopathy, unspecified; I48.0 Paroxysmal atrial fibrillation; I50.32 Chronic diastolic (congestive) heart failure; J44.0 Chronic obstructive pulmonary disease with (acute) lower respiratory infection; E11.9 Type 2 diabetes mellitus without complications; J45.901 Unspecified asthma with (acute) exacerbation; R00.0 Tachycardia, unspecified; N39.0 Urinary tract infection, site not specified; J44.1 Chronic obstructive pulmonary disease with (acute) exacerbation; Z79.01 Long term (current) use of anticoagulants; Z86.11 Personal history of tuberculosis; Z79.899 Other long term (current) drug therapy
CPT/HCPCS: 36415; 36600; 71045; 80053; 80061; 81003; 82375; 82805; 82962; 83605; 83735; 83880; 84145; 84484; 85025; 90686; 90732; 93005; 94640; 94660; 96365; 99291; J0696; J1160; J1650; J1815; J1940; J1956; J2270; J2920; J2930; J3475; J3490; J7030; J7626